=== PATIENT | female | born 1960 | race Caucasian/White ===

== ENCOUNTER 2017-07-20 07:40 | Inpatient (IN) | payer OTHER, BC ==
[2017-07-04 09:33] VITALS: BMI 44.0
--- NOTE | 2017-07-04 10:06 | PAT Medication Instructions ---
Service Date Jul 04, 2017. Current Home Medication List Acetaminophen (Tylenol), 1,000 MG PO QID PRN for Pain Bupropion (Wellbutrin Sr), 150 MG PO BID Citalopram (Citalopram Hydrobromide), 1 TAB PO QAM Clonazepam (Klonopin), 0.5 MG PO TID PRN for Anxiety Cranberry-Vitamin C-Vitamin E (Cranberry Plus Vitamin C), 2 CAP PO QAM Naproxen (Aleve), 220 MG PO BID PRN for Pain Phentermine Hcl (Adipex P), 37.5 MG PO UD Quetiapine Fumarate (Seroquel), 50 MG PO HS Topiramate (Topamax), 50 MG PO UD Tramadol (Ultram), 50 MG PO Q6H PRN for Pain Medication Instructions For Your Scheduled Surgery - Check with surgeon for instructions: Naproxen (Aleve), 220 MG PO BID PRN for Pain - Hold the following medications 2 weeks prior to surgery: Cranberry-Vitamin C-Vitamin E (Cranberry Plus Vitamin C), 2 CAP PO QAM - Take the following medications the morning of surgery with a sip of water OTHERWISE NOTHING TO EAT OR DRINK AFTER MIDNIGHT: Bupropion (Wellbutrin Sr), 150 MG PO BID Citalopram (Citalopram Hydrobromide), 1 TAB PO QAM Acetaminophen (Tylenol), 1,000 MG PO QID PRN for Pain (may take if needed up to 4 hours prior to surgery) Clonazepam (Klonopin), 0.5 MG PO TID PRN for Anxiety Tramadol (Ultram), 50 MG PO Q6H PRN for Pain (may take if needed up to 4 hours prior to surgery) - Take the following medications as scheduled the night before surgery: Bupropion (Wellbutrin Sr), 150 MG PO BID Acetaminophen (Tylenol), 1,000 MG PO QID PRN for Pain Clonazepam (Klonopin), 0.5 MG PO TID PRN for Anxiety Tramadol (Ultram), 50 MG PO Q6H PRN for Pain Quetiapine Fumarate (Seroquel), 50 MG PO HS If you have any questions please call us at [phone] or [phone] or [phone]
[2017-07-04 10:41] LABS: BASO % 0.4 %; BASO ABS # 0.02 K/uL (0-0.2); COMPLETE YES; EOS % 2.8 %; HEMATOCRIT 37.1 % (37-47); IG% 0.2 %; LYMPH % 28.2 %; LYMPH ABS # 1.33 K/uL (1.2-3.4); MEAN CELL VOLUME 90.7 fL (80-100); MEAN CORPUSCULAR HEMOGLOBIN 29.6 pg (25-34); MEAN CORPUSCULAR HGB CONC 32.6 g/dl (32-36); MEAN PLATELET VOLUME 10.7 fL (7.4-10.4); MONO % 6.4 %; PLATELET COUNT 203 K/uL (130-400); RED BLOOD COUNT 4.09 M/uL (4.2-5.4); WHITE BLOOD COUNT 4.71 K/uL (4.8-10.8)
[2017-07-04 10:44] LABS: URINE APPEARANCE CLEAR (CLEAR); URINE BILIRUBIN NEG (NEG); URINE COLOR YELLOW; URINE EPITHELIAL CELL AUTO >30 /lpf (0-5); URINE NITRITE NEG (NEG); URINE SPECIFIC GRAVITY 1.022 (1.000-1.030); UROBILINOGEN NEG (NEG)
[2017-07-04 10:45] LABS: MANUAL MICROSCOPIC REQUIRED? NO; REVIEW REQ? NO
[2017-07-04 10:50] LABS: PARTIAL THROMBOPLASTIN RATIO 1.1; PROTHROMBIN TIME (PATIENT) 10.2 SECONDS (9.0-12.0)
--- NOTE | 2017-07-04 10:51 | DIAGNOSTIC IMAGING REPORT ---
TWO VIEW CHEST CLINICAL HISTORY: Preoperative examination. FINDINGS: PA and lateral chest radiographs are obtained. No prior studies are available for comparison at the time of dictation. The cardiomediastinal silhouette is unremarkable. There is mild elevation of the right hemidiaphragm. The lungs and pleural spaces are clear. There is no pneumothorax. The bony thorax appears intact. IMPRESSION: No active disease in the chest. Electronically signed by: Arnulfo Leo M.D. 07/04/2017 10:50 AM Dictated Date/Time: 07/04/2017 10:48 AM
[2017-07-04 11:52] LABS: BUN/CREATININE RATIO 17.4 (10-20); CALCIUM 8.4 mg/dl (8.5-10.1); CREATININE 0.85 mg/dl (0.60-1.20); POTASSIUM 4.1 mmol/L (3.5-5.1)
--- NOTE | 2017-07-19 13:37 | HISTORY & PHYSICAL EXAMINATION ---
DATE OF ADMISSION: 07/20/2017 HISTORY OF PRESENT ILLNESS: The patient presents as a 57-year-old white female, 5 foot 10 inches, 299 pounds being seen and evaluated with complaints of ongoing pain attributed to her right knee. She has been nonresponsive to conservative therapy. She has bone to bone changes, varus alignment, subchondral osteophytes, and subchondral sclerosis with subchondral cystic changes and medial osteophytes noted. She has been nonresponsive to conservative therapy including injections, anti-inflammatories, activity modification, and relative rest and presents for total knee arthroplasty. PAST MEDICAL HISTORY: Significant for sleep apnea, utilizing a home CPAP as well as severe anxiety. Remainder of past medical history is otherwise unremarkable. See history for pertinent positives. FAMILY HISTORY: Otherwise noncontributory. SOCIAL HISTORY: The patient denies history of smoking, alcohol use or recreational drug use. MEDICAL ALLERGIES: None. MEDICATIONS: Include clonazepam 0.5 mg at nighttime, if needed; Naprosyn 220 mg 2 tablets p.o. daily, Topiramate 50 mg in the evening, tramadol 50 mg p.o. q. 6 hours as needed. PHYSICAL EXAMINATION: HEENT: Otherwise unremarkable, atraumatic, normocephalic. HEART: regular at 72 beats per minute. No murmurs are noted. LUNGS: Clear without rales, rhonchi, or wheezes noted. ABDOMEN: Soft, nontender, nondistended. Bowel sounds are present in all 4 quadrants. RECTAL: No rectal examination was performed. MUSCULOSKELETAL: Consistent with that of severe end-stage tricompartmental degenerative joint disease with bone to bone changes. PLAN: Total knee arthroplasty, postoperative pain management, DVT prophylaxis and medical management as necessary. PATY
[~2017-07-20] VITALS: Ht 177.8 cm; Wt 139.2 kg
[2017-07-20] VITALS (8 sets, daily range): BP systolic 115–149; BP diastolic 72–84; PULSE 71–82; TEMP 36.8–37.1; O2SAT 94–99; Ht 177.8 cm; Wt 139.2 kg
--- NOTE | 2017-07-20 07:09 | History & Physical Bridge Note ---
H&P Re-Evaluation Bridge Note: I have examined the patient, reviewed the History & Physical and in the interval since the performance of the History & Physical I have noted the following changes of clinical significance: No changes noted
[~2017-07-20 07:40] MED LIST: ACET-1256 PO; ACETAMINOPHEN 500 MG TAB PO SCH; BUPR-79 PO; CEFAZOLIN 3000 MG/65 ML D5W 65 ML IV SCH; CITA40TA4 PO; CLON0.5T3 PO; CRAN1CAP14 PO; CeleBREX 200 MG CAP PO SCH; DEXAMETHASONE 4 MG TAB PO SCH; FAMOTIDINE 20 MG TAB PO SCH; GABAPENTIN 300 MG CAP PO SCH; LACTATED RINGER'S 1000ML 1,000 ML IV SCH; LACTATED RINGER'S 1000ML 500 ML IV ONE; LACTATED RINGER'S 1000ML IV SCH; METOCLOPRAMIDE HCL 10 MG TAB PO SCH; NAPR1TAB9 PO; QUET1TAB32 PO; ROPIVACAINE 5MG/ML 30 ML 150 MG, BUPIVACAINE/EPINEPHR 0.5% MPF 30 ML, KETOROLAC TROMETH... INFIL SCH; TRAM-10 PO
[2017-07-20] MEDS ORDERED: BUPIVACAINE 0.5 % 5 MG/1 ML PF 10ML VIAL ONE (08:31)
[2017-07-20] MEDS ORDERED: BUPIVACAINE 0.25% 30 ML VIAL ONE (08:31)
[2017-07-20] MEDS ORDERED: MIDAZOLAM HCL 1 MG/ML 2ML VIAL ONE ×3 (09:11→10:48)
[2017-07-20] MEDS ORDERED: PROPOFOL IV EMULSION 10 MG/ML 20 ML VIAL IV ONE ×2 (09:12→11:46)
[2017-07-20] MEDS ORDERED: LIDOCAINE HCL 2% 2 ML VIAL (20MG/ML) ONE (09:12)
[2017-07-20] MEDS: TRANEXAMIC ACID INJ 1,000 MG in SODIUM CHLORIDE 0.9% 100ML 100 ML IV SCH ×2 (09:54→14:55)
[2017-07-20] MEDS ORDERED: POVIDONE-IODINE OP SOLN 30 ML BTL ONE (10:13)
[2017-07-20] MEDS ORDERED: ORTHO JOINT ANESTHETIC ONE (10:13)
[2017-07-20] MEDS ORDERED: BACITRACIN 50000 UNIT VIAL ONE (10:13)
[2017-07-20] MEDS ORDERED: ONDANSETRON INJ 2 MG/ML 2 ML VIAL IV PRN ×2 (11:30→12:30)
[2017-07-20] MEDS ORDERED: LABETALOL HCL IV 5 MG/ML 20ML IV PRN (11:30)
[2017-07-20] MEDS ORDERED: MEPERIDINE HCL 25 MG/ML CARP IV PRN (11:30)
[2017-07-20] MEDS ORDERED: FENTANYL CITRATE INJ 50 MCG/1 ML 2 ML VIAL IV PRN (11:30)
[2017-07-20] MEDS ORDERED: ATROPINE SULFATE 0.1 MG/ML 5ML SYR IV PRN (11:30)
[2017-07-20] MEDS ORDERED: EpHEDrine SULFATE INJ 50 MG/ML AMP IV PRN (11:30)
[2017-07-20] MEDS ORDERED: HYDROmorphone INJ 1 MG/ML SYR IV PRN (11:30)
--- NOTE | 2017-07-20 11:51 | [facility] Operative Report ---
Operative Report Operative Date Jul 20, 2017. Pre-Operative Diagnosis degenerative joint disease Post-Operative Diagnosis degenerative joint disease Procedure(s) Performed total right knee arthroplasty utilizing [employer] & Nephew journey 2 nonblock total knee arthroplasty size 5 femur 4 tibia 11 Kirstin [address] Wood Coates Jira Administrator Surgeon(s) Roseanne Jarvis PA-C Estimated Blood Loss 5ML Findings Severe end-stage tricompartmental degenerative joint disease with varus alignment subchondral cystic changes sclerosus Specimens A: right knee bone and tissue Complication(s) None Disposition Recovery Room / PACU Indications Patient presents with a severe varus alignment DJD [id number] changes medial compartment patellofemoral compartment large osteophyte subchondral sclerosis she's failed times a conservative management including physical therapy anti- inflammatories relative rest activity modification presents for total knee arthroplasty Description of Procedure After proper prepping and draping of the Right lower extremity anterior midline incision was made over the region of the extensor extensor mechanism after meticulous hemostasis was obtained and maintained in subcutaneous tissues a medial parapatellar incision was made The patella was subluxed lateralward the medial lateral gutter were cleaned from any hypertrophic synovitis and scar tissue of the distal femoral block was placed and the distal femoral osteotomy cut was made subsequently the chamfers anterior and posterior osteotomy cuts were made utilizing the 4-in-1 block the tibia was subsequently subluxed anteriorward medial and ateral meniscal remnants were excised in their entirety remnants of the anterior and posterior cruciate ligaments were excised in their entirety excellent exposure of the proximal tibia was obtained the tibial osteotomy guide was placed on the proximal tibial osteotomy cut was made once again the knee was irrigated with copious amounts of sterile saline solution the patella was subsequently everted lateralward thickened scar tissue around the patella was removed the patella was subsequently cut utilizing a freehand technique and was drilled prepared for final preparation and placement of patella socially flexion-extension gaps were checked and the equal and symmetric trials were placed to the appropriate femoral and tibial trials with poly-spacer being placed for equal flexion and extension gaps and full range of motion including extension to 0 and flexion to 140 the trial components after having been taken to recovery range of motion was subsequently removed meticulous hemostasis was obtained and maintained subsequently a knee block injection of joint cocktail including ropivacaine 0.5% 150 mg. Bupivacaine 0.5 % epinephrine 1-200,030 mL's toradol 30 mg dexamethasone 4 mg ketamine 10 mg clonidine 100 micrograms normal saline solution 30 mg was infiltrated into the soft tissues of the posterior knee medial lateral gutters and periosteal synovium special attention was paid to protect neurovascular structures at all times subsequently trial components having been removed the knee was irrigated with sterile saline solution. debris was removed the proximal tibia was subsequently prepared and was made ready for the placement of the tibial component tibial component was also cemented and tamped into position the femoral component was subsequently placed and cemented in the position the patellar component was subsequently cemented in position because hemostasis once again obtained and maintained wound having been thoroughly irrigated with debridement and debridement lavage was performed as well as a medial parapatellar incision closed with #1 Vicryl in interrupted fashion subcutaneous was closed with #2 Vicryl skin was closed with skin clips. PA-C was necessary for prepping and drapping as well as wound closure of deep fascia Sub cutaneous tissue and skin and was necessary for the case. A sterile compressive dressing was placed patient was taken to recovery in stable condition of report dictated by Jaxon I attest to the content of the Intraoperative Record and any orders documented therein. Any exceptions are noted below. I attest to the content of the Intraoperative Record and any orders documented therein. Any exceptions are noted below.
[2017-07-20] MEDS ORDERED: ZOLPIDEM TARTRATE 5 MG TAB PO PRN (12:30)
[2017-07-20] MEDS ORDERED: ALUMINUM/MAGNESIUM/SIMETH (MAALOX MAX) 30 ML UDC PO PRN (12:30)
[2017-07-20] MEDS ORDERED: CLONAZEPAM 0.5 MG TAB PO PRN (12:30)
[2017-07-20] MEDS ORDERED: BISACODYL 10 MG SUPP PR PRN (12:30)
[2017-07-20] MEDS ORDERED: SOD PHOSPHATE/SOD BIPHOSPHATE ENEMA 132 ML BTL PR PRN (12:30)
[2017-07-20] MEDS ORDERED: MAGNESIUM HYDROXIDE SUSP 30 ML UDC PO PRN (12:30)
[2017-07-20] MEDS ORDERED: MoRPHine SULFATE 2 MG/ML CARP IV PRN (12:30)
[2017-07-20] MEDS ORDERED: DiphenhydrAMINE HCL 50 MG/ML VIAL IV PRN (12:30)
--- NOTE | 2017-07-20 12:44 | Anesthesiology Progress Note ---
Anesthesia Post Op Note Date & Time Jul 20, 2017 at 12:44 Vital Signs Pain Intensity: 2 Vital Signs Past 12 Hours Date Time Temp Pulse Resp B/P (MAP) Pulse Ox O2 Delivery O2 Flow Rate FiO2 07/20/17 12:36 120/69 07/20/17 12:35 70 16 07/20/17 12:35 69 16 93 07/20/17 12:31 123/72 07/20/17 12:30 72 18 94 07/20/17 12:30 72 18 07/20/17 12:26 128/75 07/20/17 12:25 72 16 07/20/17 12:25 71 16 93 07/20/17 12:20 36.4 76 20 123/72 95 Room Air 07/20/17 12:20 76 20 123/72 95 07/20/17 12:20 77 20 07/20/17 08:00 36.8 82 20 141/78 99 Room Air Notes Mental Status: alert / awake / arousable, participated in evaluation Pt Amnestic to Procedure: Yes Nausea / Vomiting: adequately controlled Pain: adequately controlled Airway Patency, RR, SpO2: stable & adequate BP & HR: stable & adequate Hydration State: stable & adequate Anesthetic Complications: no major complications apparent
--- NOTE | 2017-07-20 12:54 | DIAGNOSTIC IMAGING REPORT ---
R KNEE 1 OR 2 VIEWS ROUTINE HISTORY: 57 years-old Female AP/LATERAL IN PACU RIGHT KNEE status post right knee arthroplasty COMPARISON: None available TECHNIQUE: Frontal and lateral views of the right knee FINDINGS: Patient is status post right knee total joint arthroplasty and patellar resurfacing without evidence of complication. Alignment is satisfactory. Anterior skin ev with expected postsurgical swelling and deep tissue air is noted about the knee. Surgical drain in place. There is mild flexion of the knee which slightly limits the study on the lateral view. IMPRESSION: Status post right knee total joint arthroplasty and patellar resurfacing without complication. The above report was generated using voice recognition software. It may contain grammatical, syntax or spelling errors. Electronically signed by: Navarro Palma M.D. 07/20/2017 12:52 PM Dictated Date/Time: 07/20/2017 12:51 PM
[2017-07-20] MEDS ORDERED: INFLUENZA VIRUS QUAD VACCINE 0.5 ML SYR IM. ONE (14:15)
[2017-07-20] MEDS ORDERED: INFLUENZA ADMINISTRATION CHARGE ONE (14:15)
[2017-07-20] MEDS: D5W AND 1/2NSS + 20MEQ KCL 1,000 ML IV SCH ×2 (15:04→23:55)
[2017-07-20] MEDS: CEFAZOLIN IV 3,000 MG in SYRINGE 0 ML IV SCH (17:36)
[2017-07-20] MEDS: OXYCODONE HCL IR 5 MG TAB (IMMEDIATE RELEASE) PO PRN (18:33)
[2017-07-20] MEDS: KETOROLAC TROMETHAMINE 30 MG/ML VIAL IV. SCH (19:35)
[2017-07-20] MEDS: BuPROPion SR 150 MG TABCR PO SCH (21:17)
[2017-07-20] MEDS: SENNA 8.6 MG TAB PO SCH (21:17)
[2017-07-20] MEDS: ACETAMINOPHEN 500 MG TAB PO SCH (21:17)
[2017-07-20] MEDS: ASPIRIN 81 MG ECTAB PO SCH (21:17)
[2017-07-20] MEDS: QUETIAPINE FUMARATE 25 MG TAB PO SCH (21:17)
[2017-07-21] MEDS: CEFAZOLIN IV 3,000 MG in SYRINGE 0 ML IV SCH ×2 (02:03→10:15)
[2017-07-21] MEDS: KETOROLAC TROMETHAMINE 30 MG/ML VIAL IV. SCH ×3 (02:04→13:57)
[2017-07-21 03:55] VITALS: BP 139/84; PULSE 69; TEMP 36.9; O2SAT 96
[2017-07-21] MEDS: ACETAMINOPHEN 500 MG TAB PO SCH ×3 (06:00→22:06)
[2017-07-21] MEDS: OXYCODONE HCL IR 5 MG TAB (IMMEDIATE RELEASE) PO PRN ×2 (06:14→12:55)
[2017-07-21 06:15] LABS: HEMATOCRIT 31.8 % (37-47); MEAN CELL VOLUME 91.6 fL (80-100); MEAN CORPUSCULAR HEMOGLOBIN 30.8 pg (25-34); MEAN CORPUSCULAR HGB CONC 33.6 g/dl (32-36); MEAN PLATELET VOLUME 10.4 fL (7.4-10.4); PLATELET COUNT 185 K/uL (130-400); RED BLOOD COUNT 3.47 M/uL (4.2-5.4); WHITE BLOOD COUNT 9.35 K/uL (4.8-10.8)
[2017-07-21 06:53] LABS: BUN/CREATININE RATIO 16.6 (10-20); CALCIUM 8.2 mg/dl (8.5-10.1); CREATININE 0.83 mg/dl (0.60-1.20); POTASSIUM 4.3 mmol/L (3.5-5.1)
[2017-07-21 07:06] VITALS: BP 128/78; PULSE 64; TEMP 36.8; O2SAT 99
--- NOTE | 2017-07-21 07:17 | Clinical Documentation Query ---
CLINICAL DOCUMENTATION QUERY Dr. GAMA, In your clinical opinion does this patient have: ( ) morbid obesity with BMI 44 ( ) Not Agree ( ) Other explanation of clinical findings (Please Explain) ( ) Unable to determine (Please Define) ( ) Need to Discuss BMI: A significantly high (>40) or significantly low (<19) BMI will impact the severity of illness and risk of mortality of your patient. However, the physician must document a correlating diagnosis in the medical record. Please clarify and document your clinical opinion in the progress notes and discharge summary. Terms such as "probable", "suspected", "likely", "questionable", "possible", or "still to be ruled out" are acceptable. IF IN AGREEMENT, YOU MUST DOCUMENT ABOVE DIAGNOSTIC STATEMENT IN DAILY PROGRESS NOTES AND DISCHARGE SUMMARY. This document is not part of the patient's record. Thank You, Nidhi Dickinson, SONIA [phone]
[2017-07-21] MEDS ORDERED: DEXAMETHASONE 4 MG TAB PO ONE (07:30)
--- NOTE | 2017-07-21 07:58 | Orthopedic Progress Note ---
Orthopedic Progress Note Date of Service Jul 21, 2017. Subjective Post OP Day: 1 Reports: feeling well, Denies: chest pain, SOB, nausea / vomiting, light headedness, calf pain Objective calves soft nontender, N/V intact, capillary refill less than 2 sec., dressing C /D/I, A&O x3, toes mobile, hemovac drainage (175/150cc per shift) Date Time Temp Pulse Resp B/P (MAP) Pulse Ox O2 Delivery O2 Flow Rate FiO2 07/21/17 07:06 36.8 64 16 128/78 (95) 99 Room Air 07/21/17 03:55 36.9 69 16 139/84 (102) 96 Room Air 07/20/17 22:54 37.0 76 16 115/72 (86) 95 Room Air 07/20/17 19:46 36.8 76 16 149/73 (98) 94 Room Air 07/20/17 19:33 Room Air CPAP 07/20/17 16:47 37.1 77 16 125/78 (94) 96 Nasal Cannula 2.0 07/20/17 15:45 36.8 80 16 127/81 (96) 97 Nasal Cannula 2.0 07/20/17 14:45 82 16 134/78 (96) 97 07/20/17 14:15 77 16 136/84 (101) 97 07/20/17 13:45 97 Nasal Cannula 2.0 07/20/17 13:45 96 Nasal Cannula 2.0 07/20/17 13:45 37.1 71 16 125/75 (92) 97 Nasal Cannula 2.0 07/20/17 13:13 73 20 07/20/17 13:13 72 20 93 07/20/17 13:11 121/71 07/20/17 13:08 71 16 07/20/17 13:08 70 16 91 07/20/17 13:06 124/77 07/20/17 13:03 71 18 92 07/20/17 13:03 71 18 07/20/17 13:01 125/67 07/20/17 12:58 73 16 07/20/17 12:58 72 16 92 07/20/17 12:56 129/74 07/20/17 12:53 71 15 92 07/20/17 12:53 72 15 07/20/17 12:51 128/78 07/20/17 12:49 36.4 72 22 128/78 (80) 93 Room Air 07/20/17 12:48 74 20 94 07/20/17 12:48 74 20 07/20/17 12:47 75 19 93 07/20/17 12:47 74 19 07/20/17 12:46 123/85 07/20/17 12:42 71 16 07/20/17 12:42 71 16 93 07/20/17 12:41 127/69 07/20/17 12:37 78 15 07/20/17 12:37 77 15 95 07/20/17 12:36 120/69 07/20/17 12:35 70 16 07/20/17 12:35 69 16 93 07/20/17 12:31 123/72 07/20/17 12:30 72 18 94 07/20/17 12:30 72 18 07/20/17 12:26 128/75 07/20/17 12:25 72 16 07/20/17 12:25 71 16 93 07/20/17 12:20 36.4 76 20 123/72 95 Room Air 07/20/17 12:20 76 20 123/72 95 07/20/17 12:20 77 20 07/20/17 08:00 36.8 82 20 141/78 99 Room Air Laboratory Results 24 Hours: Test 07/21/17 06:04 Hematocrit 31.8 % Hemoglobin 10.7 g/dL Assessment & Plan Assessment: POD#1 sp right TKA Morbid obesity Plan: PT/OT DVT proph- ASA a81mg bid Pain management- Judy, Tylenol, Celebrex DC planning- home PT with KAMILA Avalos Tuesday
[2017-07-21] MEDS: MULTIVITAMIN TAB PO SCH (09:06)
[2017-07-21] MEDS: CITALOPRAM 40 MG TAB PO SCH (09:06)
[2017-07-21] MEDS: PANTOprazole SOD 40 MG TAB PO SCH (09:07)
[2017-07-21] MEDS: ASPIRIN 81 MG ECTAB PO SCH ×2 (09:07→20:53)
[2017-07-21] MEDS: BuPROPion SR 150 MG TABCR PO SCH ×2 (09:07→20:53)
[2017-07-21] MEDS: D5W AND 1/2NSS + 20MEQ KCL 1,000 ML IV SCH (10:15)
[2017-07-21 11:12] VITALS: BP 131/77; PULSE 73; TEMP 37.1; O2SAT 99
--- NOTE | 2017-07-21 12:45 | Anesthesiology Progress Note ---
Anesthesia Post Op Note Date & Time Jul 21, 2017 at 12:45 Vital Signs Pain Intensity: 4.0 Vital Signs Past 12 Hours Date Time Temp Pulse Resp B/P (MAP) Pulse Ox O2 Delivery O2 Flow Rate FiO2 07/21/17 11:12 37.1 73 16 131/77 (95) 99 Room Air 07/21/17 08:22 Room Air 07/21/17 07:06 36.8 64 16 128/78 (95) 99 Room Air 07/21/17 03:55 36.9 69 16 139/84 (102) 96 Room Air Notes Mental Status: alert / awake / arousable, participated in evaluation Pt Amnestic to Procedure: Yes Nausea / Vomiting: adequately controlled Pain: adequately controlled Airway Patency, RR, SpO2: stable & adequate BP & HR: stable & adequate Hydration State: stable & adequate Neuraxial Anesthesia: was administered, sensory block resolved Anesthetic Complications: no major complications apparent
[2017-07-21 15:40] VITALS: BP 139/84; PULSE 70; TEMP 36.5; O2SAT 99
[2017-07-21] MEDS: SENNA 8.6 MG TAB PO SCH (20:53)
[2017-07-21] MEDS: CeleBREX 200 MG CAP PO SCH (20:53)
[2017-07-21] MEDS: QUETIAPINE FUMARATE 25 MG TAB PO SCH (23:00)
[2017-07-21 23:01] VITALS: BP 140/93; PULSE 65; TEMP 36.5; O2SAT 100
[2017-07-22] MEDS: ACETAMINOPHEN 500 MG TAB PO SCH ×2 (05:58→13:57)
--- NOTE | 2017-07-22 07:24 | Orthopedic Progress Note ---
Orthopedic Progress Note Date of Service Jul 22, 2017. Subjective Post OP Day: 2 Reports: feeling well, pain controlled w PO medications, Denies: complaints, chest pain, SOB, nausea / vomiting, light headedness, calf pain Objective calves soft nontender, N/V intact, capillary refill less than 2 sec., dressing C /D/I, A&O x3, toes mobile Provena in tact. Date Time Temp Pulse Resp B/P (MAP) Pulse Ox O2 Delivery O2 Flow Rate FiO2 07/21/17 23:15 Room Air CPAP 07/21/17 23:01 36.5 65 16 140/93 (109) 100 Room Air 07/21/17 16:05 Room Air 07/21/17 15:40 36.5 70 18 139/84 (102) 99 Room Air 07/21/17 11:12 37.1 73 16 131/77 (95) 99 Room Air 07/21/17 08:22 Room Air Assessment & Plan Assessment: POD#2 sp right TKA Morbid obesity Plan: PT/OT DVT proph- ASA a81mg bid Pain management- Judy, Tylenol, Celebrex DC planning- home PT with KAMILA Avalos today
[2017-07-22] MEDS ORDERED: ASPEC81 PO (07:27)
[2017-07-22] MEDS ORDERED: CLB200 PO (07:27)
[2017-07-22] MEDS ORDERED: RXC5 PO (07:27)
[2017-07-22] MEDS ORDERED: ACET-24 PO (07:27)
--- NOTE | 2017-07-22 07:29 | Discharge Instructions ---
Discharge Instructions Date of Service Jul 22, 2017. Admission Reason for Admission: Unilateral Primary Osteoarthritis, Right Knee Discharge Discharge Diagnosis / Problem: Right TKA Discharge Goals Goal(s): Improve function Activity Recommendations Activity Limitations: as noted below . Instructions / Follow-Up Instructions / Follow-Up ACTIVITY RECOMMENDATIONS: SELF CARE INSTRUCTIONS AFTER TOTAL KNEE REPLACEMENT A. You may need to continue a physical therapy program after discharge from the hospital. There are several options available to you. Your doctor will assist you in selecting the best one for you. 1. An out-patient facility 2 to 3 times a week for therapy or home therapy. 2. Continue working on all exercises taught to you in the hospital. Your goals should be to increase bending of your knee to 90 degrees and beyond and to fully straighten your knee. B. You may progress at your own pace from walking with a walker or crutches to a cane; then to no assistive devices. C. Make walking a part of your daily routine. Be up as much as comfortable with rest periods throughout the day. Rest with leg elevation is very important. Use the ice wrap frequently for the first 3-4 weeks. D. There are no restrictions on activities. You may ride in a car, shop, participate in music composer and all social activities. E. Wear the long elastic stockings (ALEJANDRA hose) 20 hours a day for 2 weeks after surgery. They can be removed several times a day for laundering and for a bath. F. You may shower, no tub baths until cleared by your doctor. SPECIAL CARE INSTRUCTIONS: VERY IMPORTANT TO READ AND REVIEW A. There are a few signs you need to watch for after you are home. Call [facility] if you notice any of the followin. Increased severe knee pain. Some pain is expected especially when you exercise. 2. Increased swelling in your leg or knee; pain or swelling of the calf muscle in either lower leg. 3. Any fluid drainage from the incision. 4. Shortness of breath or chest pain. B. Please call [facility] at if you have any concerns or questions about your operation or recovery. The doctor or his nurse will return your call promptly. C. You must take antibiotics before dental work, bladder, bowel or other surgery. Your doctor will provide you with a permanent care to carry describing this precaution. IMPORTANT: * REMEMBER TO TAKE ASPIRIN, 81 MG, TWICE DAILY FOR 4 WEEKS UNLESS OTHERWISE DIRECTED. THIS IS YOUR BLOOD THINNER. * HIGH RISK PATIENTS MAY BE PRESCRIBED A STRONGER BLOOD THINNER. THIS WILL BE PROVIDED AT DISCHARGE. * CALL IF INCREASED PAIN, REDNESS, DRAINAGE OR FEVER GREATER THAT 101. * WEAR ALEJANDRA HOSE 20 HOURS PER DAY FOR 2 WEEKS. * YOU MAY HAVE A LARGE BAND-AID LIKE DRESSING (SILVERON). THIS WILL REMAIN ON YOUR INCISION FOR 7 DAYS, THEN CAN BE REMOVED. IF INCISION IS LEAKING THROUGH DRESSING, CALL THE OFFICE . FOLLOW UP VISIT: If appointment is not already scheduled: Please call [facility] to make a follow-up appointment for 2 weeks after your surgery at . D/C WOUND VAC 1 WK POST OP AND DISCARD ALL PARTS, REPLACE WITH STERILE DRESSING DAILY UNTIL FOLLOW UP IN OFFICE. Current Hospital Diet Patient's current hospital diet: Regular Diet Discharge Diet Recommended Diet: Regular Diet Procedures Procedures Performed: total right knee arthroplasty utilizing [employer] & Nephew journey 2 nonblock total knee arthroplasty size 5 femur 4 tibia 11 Kirstin 32 oval patella Pending Studies Studies pending at discharge: no Laboratory Results Hemoglobin A1c Test 07/04/17 10:15 Range/Units Estimated Average Glucose 111 mg/dl Hemoglobin A1c 5.5 4.5-5.6 % Medical Emergencies . Who to Call and When: Medical Emergencies: If at any time you feel your situation is an emergency, please call 911 immediately. . Non-Emergent Contact Non-Emergency issues call your: Primary Care Provider . "Provider Documentation" section prepared by Rupert Sinha. . VTE Core Measure Inpt VTE Proph given/why not?: Other Anticoagulation (ASA), T.E.DRuth Ann Mcclelland, SCD's [place] Drug Monitoring Program Search Results: patient reviewed within database, no issues identified
[2017-07-22 07:45] VITALS: BP 129/81; PULSE 69; TEMP 36.5; O2SAT 100
[2017-07-22 08:19] VITALS: BP 129/81; PULSE 69; TEMP 36.5; O2SAT 100
[2017-07-22] MEDS: BuPROPion SR 150 MG TABCR PO SCH (08:59)
[2017-07-22] MEDS: CeleBREX 200 MG CAP PO SCH (08:59)
[2017-07-22] MEDS: MULTIVITAMIN TAB PO SCH (08:59)
[2017-07-22] MEDS: CITALOPRAM 40 MG TAB PO SCH (08:59)
[2017-07-22] MEDS: PANTOprazole SOD 40 MG TAB PO SCH (08:59)
[2017-07-22] MEDS: ASPIRIN 81 MG ECTAB PO SCH (08:59)
[2017-07-22] MEDS: OXYCODONE HCL IR 5 MG TAB (IMMEDIATE RELEASE) PO PRN (11:42)
--- NOTE | 2017-07-25 13:12 | DISCHARGE SUMMARY ---
DISCHARGE DIAGNOSIS: Degenerative joint disease, right knee. SECONDARY DIAGNOSIS: None. CONSULTS: None. COMPLICATIONS: None. PROCEDURE: The patient underwent a right total knee arthroplasty by Dr. Coates on 07/20/2017. BRIEF HISTORY: Please see previously dictated history and physical. HOSPITAL SUMMARY: The patient was admitted on the above day for the above procedure. Procedure went without complication. Postop day 1, the patient was feeling well without complaints. She denied chest pain or shortness of breath. Vital signs were stable. She was afebrile. Dressing was clean, dry and intact. She was neurovascularly intact. Calves were soft and nontender. Hemovac drained 175 mL and 150 mL. Hemoglobin was 10.7. The patient began physical therapy per protocol. Postop day 2, the patient was improving. She denied chest pain or shortness of breath. Vital signs were stable. She was afebrile. Dressing was clean, dry and intact. She was neurovascularly intact. Calves were soft and nontender. The patient progressed with physical therapy. She was discharged to home later that day in stable condition. For further review, please see the chart. Lab, x-ray data and discharge instructions as per chart.
== END 2017-07-22 15:30 | disposition home health service (06) | DRG 470 ==
LOC: C.ACU 07:40 → C.3E 08:45 → ENRESERV 13:24
PROVIDERS: ADMIT Orthopaedic Surgery; ATTEND Orthopaedic Surgery
PROC: 0SRC0J9 Replacement of Right Knee Joint with Synthetic Substitute, Cemented, Open Approach (ICD-10-PCS; principal; 2017-07-20 10:15)
DX: M17.11 Unilateral primary osteoarthritis, right knee (principal); Z68.41 Body mass index [BMI] 40.0-44.9, adult; G47.30 Sleep apnea, unspecified; E66.01 Morbid (severe) obesity due to excess calories; Z79.899 Other long term (current) drug therapy

== ENCOUNTER 2017-11-02 09:55 | Inpatient (IN) | payer OTHER, BC ==
[2017-10-18 12:29] VITALS: Ht 177.8 cm; Wt 135.5 kg
--- NOTE | 2017-10-18 12:58 | PAT Medication Instructions ---
Service Date Oct 18, 2017. Current Home Medication List Acetaminophen (Tylenol), 1,000 MG PO PRN Bupropion (Wellbutrin Sr), 150 MG PO BID Citalopram (Citalopram Hydrobromide), 1 TAB PO QAM Clonazepam (Klonopin), 0.5 MG PO TID PRN for Anxiety Diphenhydramine-Acetaminophen (Tylenol Pm), 2 TAB PO HS Quetiapine Fumarate (Seroquel), 50 MG PO HS Tramadol (Ultram), 50-100 MG PO Q6H PRN for locomotive operator helper Instructions For Your Scheduled Surgery - Take the following medications the morning of surgery with a sip of water: Clonazepam (Klonopin), 0.5 MG PO TID PRN for Anxiety (if needed) Bupropion (Wellbutrin Sr), 150 MG PO BID Citalopram (Citalopram Hydrobromide), 1 TAB PO QAM Acetaminophen (Tylenol), 1,000 MG PO PRN (if needed, can be taken up to four hours before surgery) Tramadol (Ultram), 50-100 MG PO Q6H PRN for RN (if needed, can be taken up to four hours before surgery) - Take the following medications as scheduled the night before surgery: Diphenhydramine-Acetaminophen (Tylenol Pm), 2 TAB PO HS Quetiapine Fumarate (Seroquel), 50 MG PO HS Clonazepam (Klonopin), 0.5 MG PO TID PRN for Anxiety (if needed) Bupropion (Wellbutrin Sr), 150 MG PO BID Acetaminophen (Tylenol), 1,000 MG PO PRN (if needed) Tramadol (Ultram), 50-100 MG PO Q6H PRN for RN (if needed) If you have any questions please call us at [phone] or [phone] or [phone]
[2017-10-18 14:51] LABS: BASO % 0.3 %; BASO ABS # 0.02 K/uL (0-0.2); EOS % 1.9 %; EOS ABS # 0.11 K/uL (0-0.5); HEMATOCRIT 37.6 % (37-47); HEMOGLOBIN 12.1 g/dL (12.0-16.0); IG# 0.01 K/uL (0.00-0.02); LYMPH % 25.4 %; LYMPH ABS # 1.46 K/uL (1.2-3.4); MEAN CORPUSCULAR HEMOGLOBIN 29.3 pg (25-34); MEAN CORPUSCULAR HGB CONC 32.2 g/dl (32-36); MEAN PLATELET VOLUME 11.2 fL (7.4-10.4); MONO % 6.4 %; MONO ABS # 0.37 K/uL (0.11-0.59); NEUT % 65.8 %; NEUT ABS # 3.77 K/uL (1.4-6.5); PLATELET COUNT 248 K/uL (130-400); RED CELL DISTRIBUTION WIDTH CV 14.9 % (11.5-14.5); RED CELL DISTRIBUTION WIDTH SD 50.1 fL (36.4-46.3); WHITE BLOOD COUNT 5.74 K/uL (4.8-10.8)
[2017-10-18 15:02] LABS: PTT PATIENT 27.9 SECONDS (21.0-31.0)
[2017-10-18 15:35] LABS: ALBUMIN 3.6 gm/dl (3.4-5.0); CALCIUM 9.3 mg/dl (8.5-10.1); CREATININE 0.89 mg/dl (0.60-1.20); POTASSIUM 4.5 mmol/L (3.5-5.1)
[2017-10-19 05:45] LABS: HEMOGLOBIN A1C 5.3 % (4.5-5.6)
--- NOTE | 2017-10-19 11:35 | HISTORY & PHYSICAL EXAMINATION ---
DATE OF ADMISSION: 11/02/2017 CHIEF COMPLAINT: Left knee pain. HISTORY OF PRESENT ILLNESS: Leonarda is a 57-year-old female with a multiple year history of left knee pain. The patient has pain with her daily activities. She has limited standing and walking tolerance. Pain is worse with weightbearing. She has failed injections, nonsteroidals, and physical therapy. She is now scheduled for a left total knee arthroplasty. PAST MEDICAL HISTORY: Sleep apnea, history of phlebitis. PAST SURGICAL HISTORY: Right TKA. FAMILY HISTORY: Negative for DVT. SOCIAL HISTORY: The patient denies alcohol or tobacco use. She lives in a 2-story home and is . ALLERGIES: None. REVIEW OF SYSTEMS: See HPI. Ten other systems reviewed, all negative. MEDICATIONS: Clonazepam 0.5 mg p.r.n., bupropion 150 mg b.i.d., citalopram 40 mg, quetiapine 50 mg, Tylenol p.r.n. PHYSICAL EXAMINATION: VITAL SIGNS: Height 5 foot 10 inches. Weight 299 pounds. GENERAL: This is a well-developed, well-nourished female who is alert and oriented x3. Mood and affect are appropriate. HEENT: Normocephalic, atraumatic. Mucous membranes are moist and intact. NECK: Supple without lymphadenopathy. HEART: Regular rate and rhythm without murmurs, rubs or gallops. LUNGS: Clear to auscultation without wheezes or rhonchi. ABDOMEN: Soft and nontender. Bowel sounds are equal and active. EXTREMITIES: No ecchymosis, redness or warmth. Thigh and calf are soft and nontender. She has neutral alignment. Range of motion is from 0-110 degrees with no laxity. She is neurovascularly intact with +5/5 strength. She has +1 distal edema. X-RAY EXAMINATION: AP and lateral views show joint space narrowing and osteophyte formation. IMPRESSION: Degenerative joint disease, left knee. PLAN: The patient will be admitted for a left total knee arthroplasty. We will plan on [facility] for home physical therapy. The patient is requesting Tylenol and tramadol only for pain medication upon discharge.
[2017-11-02] VITALS (7 sets, daily range): BP systolic 113–145; BP diastolic 69–85; PULSE 70–94; TEMP 36.4–37.3; O2SAT 92–99
[~2017-11-02] VITALS: Ht 177.8 cm; Wt 135.5 kg
[~2017-11-02 09:55] MED LIST changes: +BUPIVACAINE 0.25% 30 ML VIAL ONE; +BUPIVACAINE 0.5 % 5 MG/1 ML PF 10ML VIAL ONE; -CEFAZOLIN 3000 MG/65 ML D5W 65 ML IV SCH; +CEFAZOLIN 3000MG IV PUSH 15 ML IV SCH; -CRAN1CAP14 PO; +DIPH-437 PO; -LACTATED RINGER'S 1000ML 500 ML IV ONE; +LACTATED RINGER'S 1000ML 500 ML IV SCH; -NAPR1TAB9 PO; +ROPIVACAINE 5MG/ML 30 ML 150 MG, BUPIVACAINE 0.5% MPF INJ 30 ML, EpINEphrine HCL INJ 0.... INFIL SCH; -ROPIVACAINE 5MG/ML 30 ML 150 MG, BUPIVACAINE/EPINEPHR 0.5% MPF 30 ML, KETOROLAC TROMETH... INFIL SCH
[2017-11-02] MEDS ORDERED: POVIDONE-IODINE OP SOLN 30 ML BTL ONE (12:10)
[2017-11-02] MEDS ORDERED: ORTHO JOINT ANESTHETIC ONE (12:10)
[2017-11-02] MEDS ORDERED: BACITRACIN 50000 UNIT VIAL ONE (12:10)
[2017-11-02] MEDS ORDERED: MIDAZOLAM HCL 1 MG/ML 2ML VIAL ONE (12:21)
[2017-11-02] MEDS ORDERED: PHENYLEPHRINE 100MCG/ML 5ML SYR IV PRN (12:30)
[2017-11-02] MEDS ORDERED: ATROPINE SULFATE 0.1 MG/ML 5ML SYR IV PRN (12:30)
[2017-11-02] MEDS ORDERED: EpHEDrine SULFATE INJ 50 MG/ML AMP IV PRN (12:30)
[2017-11-02] MEDS ORDERED: HYDROmorphone INJ 2 MG/ML SYR/VIAL IV PRN (12:30)
[2017-11-02] MEDS ORDERED: ONDANSETRON INJ 2 MG/ML 2 ML VIAL IV PRN ×2 (12:30→15:00)
[2017-11-02] MEDS ORDERED: KETOROLAC TROMETHAMINE 30 MG/ML VIAL IV. PRN ×2 (12:30→15:00)
[2017-11-02] MEDS: TRANEXAMIC ACID INJ 1,000 MG in SYRINGE 0 ML IV SCH ×2 (12:45→17:07)
[2017-11-02] MEDS ORDERED: PROPOFOL IV EMULSION 10 MG/ML 20 ML VIAL IV ONE (13:40)
[2017-11-02] MEDS ORDERED: CLONAZEPAM 0.5 MG TAB PO PRN (15:00)
[2017-11-02] MEDS ORDERED: SOD PHOSPHATE/SOD BIPHOSPHATE ENEMA 132 ML BTL PR PRN (15:00)
[2017-11-02] MEDS ORDERED: ALUMINUM/MAGNESIUM/SIMETH (MAALOX MAX) 30 ML UDC PO PRN (15:00)
[2017-11-02] MEDS ORDERED: BISACODYL 10 MG SUPP PR PRN (15:00)
[2017-11-02] MEDS ORDERED: MAGNESIUM HYDROXIDE SUSP 30 ML UDC PO PRN (15:00)
[2017-11-02] MEDS ORDERED: ZOLPIDEM TARTRATE 5 MG TAB PO PRN (15:00)
[2017-11-02] MEDS ORDERED: CEFAZOLIN IV 2,000 MG in DEXTROSE 5% 50ML 50 ML IV SCH (15:00)
[2017-11-02] MEDS ORDERED: MoRPHine SULFATE 2 MG/ML CARP IV PRN ×2 (15:00→15:30)
[2017-11-02] MEDS ORDERED: OXYCODONE HCL IR 5 MG TAB (IMMEDIATE RELEASE) PO PRN (15:15)
--- NOTE | 2017-11-02 15:21 | DIAGNOSTIC IMAGING REPORT ---
L KNEE 1 OR 2 VIEWS ROUTINE CLINICAL HISTORY: Degenerative arthritis. Postoperative study COMPARISON: None. DISCUSSION: There are postsurgical changes of a total left knee arthroplasty and patellar resurfacing. The femoral and tibial components appear well seated. Overlying skin ev and surgical drains are evident. There is air within soft tissues consistent with recent surgery. IMPRESSION: Postsurgical changes of a total left knee arthroplasty. Electronically signed by: Sae Madden M.D. 11/02/2017 3:20 PM Dictated Date/Time: 11/02/2017 3:19 PM
--- NOTE | 2017-11-02 15:22 | [facility] Post Operative Brief Note ---
Immediate Operative Summary Operative Date Nov 02, 2017. Pre-Operative Diagnosis Left Knee Degenerative Joint Disease Post-Operative Diagnosis Left Knee Degenerative Joint Disease Procedure(s) Performed Left Total Knee Arthroplasty, Cemented Surgeon Dr. Coates Horse Exerciser Surgeon(s) Rupert Johnson PA-C Estimated Blood Loss 5 ml Findings Consistent with Post-Op Diagnosis Specimens A. Left Knee Bone and Tissue Anesthesia Type MAC Spinal Regional Complication(s) none Disposition Disposition: Recovery Room / PACU
--- NOTE | 2017-11-02 15:22 | [facility] Operative Report ---
Operative Report Operative Date Nov 02, 2017. Pre-Operative Diagnosis Left Knee Degenerative Joint Disease Post-Operative Diagnosis Left Knee Degenerative Joint Disease Procedure(s) Performed Left Total Knee Arthroplasty, Cemented utilizing [employer]hew journey 2 nonlocked total knee arthroplasty size 4 femur 3 tibia Poly-[address] Coates Candle Extrusion Machine Operator Surgeon(s) Rupert Johnson PA-C Estimated Blood Loss 5 ml Findings patient presents with severe end-stage DJD about the left knee nonrespwants Patient presents with severe end-stage DJD nonresponse to conservative therapy including physical therapy anti-inflammatories relative rest activity modification knee is consistent with varus alignment osteophyte formation subchondral sclerosis varus alignment on the bone changes Specimens A. Left Knee Bone and Tissue Anesthesia Type MAC Spinal Regional Complication(s) none Disposition Recovery Room / PACU Indications Patient presents after failing attempts at conservative management including physical therapy anti-inflammatories relative rest activity modification viscus supplementation injections for left total knee arthroplasty Description of Procedure After proper prepping and draping of the left lower extremity anterior midline incision was made over the region of the extensor extensor mechanism after meticulous hemostasis was obtained and maintained in subcutaneous tissues a medial parapatellar incision was made The patella was subluxed lateralward the medial lateral gutter were cleaned from any hypertrophic synovitis and scar tissue of the distal femoral block was placed and the distal femoral osteotomy cut was made subsequently the chamfers anterior and posterior osteotomy cuts were made utilizing the 4-in-1 block the tibia was subsequently subluxed anteriorward medial and ateral meniscal remnants were excised in their entirety remnants of the anterior and posterior cruciate ligaments were excised in their entirety excellent exposure of the proximal tibia was obtained the tibial osteotomy guide was placed on the proximal tibial osteotomy cut was made once again the knee was irrigated with copious amounts of sterile saline solution the patella was subsequently everted lateralward thickened scar tissue around the patella was removed the patella was subsequently cut utilizing a freehand technique and was drilled prepared for final preparation and placement of patella socially flexion-extension gaps were checked and the equal and symmetric trials were placed to the appropriate femoral and tibial trials with poly-spacer being placed for equal flexion and extension gaps and full range of motion including extension to 0 and flexion to 140 the trial components after having been taken to recovery range of motion was subsequently removed meticulous hemostasis was obtained and maintained subsequently a knee block injection of joint cocktail including ropivacaine 0.5% 150 mg. Bupivacaine 0.5 % epinephrine 1-200,030 mL's toradol 30 mg dexamethasone 4 mg ketamine 10 mg clonidine 100 micrograms normal saline solution 30 mg was infiltrated into the soft tissues of the posterior knee medial lateral gutters and periosteal synovium special attention was paid to protect neurovascular structures at all times subsequently trial components having been removed the knee was irrigated with sterile saline solution. debris was removed the proximal tibia was subsequently prepared and was made ready for the placement of the tibial component tibial component was also cemented and tamped into position the femoral component was subsequently placed and cemented in the position the patellar component was subsequently cemented in position because hemostasis once again obtained and maintained wound having been thoroughly irrigated with debridement and debridement lavage was performed as well as a medial parapatellar incision closed with #1 Vicryl in interrupted fashion subcutaneous was closed with #2 Vicryl skin was closed with skin clips. PA-C was necessary for prepping and drapping as well as wound closure of deep fascia Sub cutaneous tissue and skin and was necessary for the case. A sterile compressive dressing was placed patient was taken to recovery in stable condition of report dictated by Jaxon I attest to the content of the Intraoperative Record and any orders documented therein. Any exceptions are noted below. I attest to the content of the Intraoperative Record and any orders documented therein. Any exceptions are noted below.
[2017-11-02] MEDS ORDERED: MoRPHine SULFATE 4 MG/ML 1 ML CARP\\VIAL IV PRN (15:30)
[2017-11-02] MEDS ORDERED: MoRPHine SULFATE 10 MG/ML CARP/VIAL IV PRN (15:30)
--- NOTE | 2017-11-02 15:35 | Anesthesiology Progress Note ---
Anesthesia Post Op Note Date & Time Nov 02, 2017 at 15:35 Vital Signs Pain Intensity: 0 Vital Signs Past 12 Hours Date Time Temp Pulse Resp B/P (MAP) Pulse Ox O2 Delivery O2 Flow Rate FiO2 11/02/17 15:30 73 18 138/98 98 Nasal Cannula 2 11/02/17 15:20 70 16 144/92 97 Nasal Cannula 2 11/02/17 15:10 72 14 144/86 98 Nasal Cannula 2 11/02/17 15:00 69 15 140/78 98 Nasal Cannula 2 11/02/17 14:50 36.8 80 16 120/68 98 Oxymask 10 11/02/17 10:20 36.4 71 20 145/70 99 Room Air Notes Mental Status: alert / awake / arousable, participated in evaluation Pt Amnestic to Procedure: Yes Nausea / Vomiting: adequately controlled Pain: adequately controlled Airway Patency, RR, SpO2: stable & adequate BP & HR: stable & adequate Hydration State: stable & adequate Anesthetic Complications: no major complications apparent
[2017-11-02] MEDS: ACETAMINOPHEN 500 MG TAB PO SCH ×2 (17:06→23:51)
[2017-11-02] MEDS: D5W AND 1/2NSS + 20MEQ KCL 1,000 ML IV SCH ×2 (17:06→23:51)
[2017-11-02] MEDS: BuPROPion SR 150 MG TABCR PO SCH (20:42)
[2017-11-02] MEDS: CEFAZOLIN IV 2,000 MG in SYRINGE 5 ML IV SCH (20:42)
[2017-11-02] MEDS: QUETIAPINE FUMARATE 25 MG TAB PO SCH (20:42)
[2017-11-02] MEDS: DOCUSATE SODIUM 100 MG CAP PO SCH (20:42)
[2017-11-02] MEDS: ASPIRIN 81 MG ECTAB PO SCH (20:42)
[2017-11-02] MEDS: SENNA 8.6 MG TAB PO SCH (20:42)
[2017-11-03 03:52] VITALS: BP 115/75; PULSE 65; TEMP 36.5; O2SAT 97
[2017-11-03] MEDS: CEFAZOLIN IV 2,000 MG in SYRINGE 5 ML IV SCH (04:38)
[2017-11-03] MEDS: TRAMADOL HCL 50 MG TAB PO PRN ×3 (04:40→23:34)
[2017-11-03 06:11] LABS: HEMATOCRIT 32.5 % (37-47); HEMOGLOBIN 10.6 g/dL (12.0-16.0); MEAN CELL VOLUME 89.3 fL (80-100); MEAN CORPUSCULAR HEMOGLOBIN 29.1 pg (25-34); MEAN CORPUSCULAR HGB CONC 32.6 g/dl (32-36); MEAN PLATELET VOLUME 10.9 fL (7.4-10.4); PLATELET COUNT 215 K/uL (130-400); RED CELL DISTRIBUTION WIDTH CV 14.9 % (11.5-14.5); RED CELL DISTRIBUTION WIDTH SD 48.8 fL (36.4-46.3); WHITE BLOOD COUNT 12.49 K/uL (4.8-10.8)
[2017-11-03 06:43] LABS: CALCIUM 8.3 mg/dl (8.5-10.1); CREATININE 0.9 mg/dl (0.60-1.20); POTASSIUM 4.3 mmol/L (3.5-5.1)
[2017-11-03 06:45] LABS: INR 0.9 (0.9-1.1)
[2017-11-03 07:13] VITALS: BP 121/76; PULSE 69; TEMP 36.4; O2SAT 96
[2017-11-03] MEDS: ACETAMINOPHEN 500 MG TAB PO SCH ×3 (07:48→23:34)
--- NOTE | 2017-11-03 08:12 | Orthopedic Progress Note ---
Orthopedic Progress Note Date of Service Nov 03, 2017. Subjective Post OP Day: 1 Reports: feeling well, Denies: chest pain, SOB, nausea / vomiting, light headedness, calf pain Objective calves soft nontender, N/V intact, capillary refill less than 2 sec., dressing C /D/I (prevena), A&O x3, toes mobile, hemovac drainage (100/175cc per shift) Date Time Temp Pulse Resp B/P (MAP) Pulse Ox O2 Delivery O2 Flow Rate FiO2 11/03/17 07:13 36.4 69 16 121/76 (91) 96 Room Air 11/03/17 03:52 36.5 65 16 115/75 (88) 97 Room Air 11/03/17 00:00 Room Air 11/02/17 23:14 36.5 70 15 117/76 (90) 92 Room Air 11/02/17 18:55 37.3 94 18 123/79 (94) 93 Room Air 11/02/17 17:53 92 18 113/69 (84) 97 Nasal Cannula 2.0 11/02/17 16:55 75 18 132/85 (101) 97 Nasal Cannula 2.0 11/02/17 16:25 36.6 70 16 121/79 (93) 97 Nasal Cannula 2.0 11/02/17 15:55 98 Nasal Cannula 2.0 11/02/17 15:55 98 Nasal Cannula 2.0 11/02/17 15:55 36.5 71 16 127/74 (91) 98 Nasal Cannula 2.0 11/02/17 15:45 36.5 70 15 131/73 97 Nasal Cannula 2 11/02/17 15:30 73 18 138/98 98 Nasal Cannula 2 11/02/17 15:20 70 16 144/92 97 Nasal Cannula 2 11/02/17 15:10 72 14 144/86 98 Nasal Cannula 2 11/02/17 15:00 69 15 140/78 98 Nasal Cannula 2 11/02/17 14:50 36.8 80 16 120/68 98 Oxymask 10 11/02/17 10:20 36.4 71 20 145/70 99 Room Air Laboratory Results 24 Hours: Test 11/03/17 05:30 Hematocrit 32.5 % Hemoglobin 10.6 g/dL Prothromb Time International Ratio 0.9 Prothrombin Time 9.9 SECONDS Assessment & Plan Assessment: POD#1 sp left TKA Plan: PT/OT DVT proph- ASA 81mg bid Pain management- Judy, Tylenol DC planning- DC home tomorrow with [facility]. Dc dressing/drain in am.
--- NOTE | 2017-11-03 08:15 | Discharge Instructions ---
Discharge Instructions Date of Service Nov 03, 2017. Admission Reason for Admission: Left Knee Osteoarthritis Discharge Discharge Diagnosis / Problem: sp left TKA Discharge Goals Goal(s): Decrease discomfort, Improve function, Increase independence Activity Recommendations Activity Limitations: per Instructions/Follow-up section . Instructions / Follow-Up Instructions / Follow-Up ACTIVITY RECOMMENDATIONS: SELF CARE INSTRUCTIONS AFTER TOTAL KNEE REPLACEMENT A. You may need to continue a physical therapy program after discharge from the hospital. There are several options available to you. Your doctor will assist you in selecting the best one for you. 1. An out-patient facility 2 to 3 times a week for therapy or home therapy. 2. Continue working on all exercises taught to you in the hospital. Your goals should be to increase bending of your knee to 90 degrees and beyond and to fully straighten your knee. B. You may progress at your own pace from walking with a walker or crutches to a cane; then to no assistive devices. C. Make walking a part of your daily routine. Be up as much as comfortable with rest periods throughout the day. Rest with leg elevation is very important. Use the ice wrap frequently for the first 3-4 weeks. D. There are no restrictions on activities. You may ride in a car, shop, participate in grouter helper and all social activities. E. Wear the long elastic stockings (ALEJANDRA hose) 20 hours a day for 2 weeks after surgery. They can be removed several times a day for laundering and for a bath. F. You may shower, no tub baths until cleared by your doctor. SPECIAL CARE INSTRUCTIONS: VERY IMPORTANT TO READ AND REVIEW A. There are a few signs you need to watch for after you are home. Call [facility] if you notice any of the followin. Increased severe knee pain. Some pain is expected especially when you exercise. 2. Increased swelling in your leg or knee; pain or swelling of the calf muscle in either lower leg. 3. Any fluid drainage from the incision. 4. Shortness of breath or chest pain. B. Please call [facility] at if you have any concerns or questions about your operation or recovery. The doctor or his nurse will return your call promptly. C. You must take antibiotics before dental work, bladder, bowel or other surgery. Your doctor will provide you with a permanent care to carry describing this precaution. IMPORTANT: * REMEMBER TO TAKE ASPIRIN, 81 MG, TWICE DAILY FOR 4 WEEKS UNLESS OTHERWISE DIRECTED. THIS IS YOUR BLOOD THINNER. * HIGH RISK PATIENTS MAY BE PRESCRIBED A STRONGER BLOOD THINNER. THIS WILL BE PROVIDED AT DISCHARGE. * CALL IF INCREASED PAIN, REDNESS, DRAINAGE OR FEVER GREATER THAT 101. * WEAR ALEJANDRA HOSE 20 HOURS PER DAY FOR 2 WEEKS. Prevena- This is a large suction dressing covering your incision. This will help pull any excess drainage from the wound and allow your incision to heal properly. You may shower with this if you can keep the unit outside of the shower. If any bleeding or leakage is noted please call your doctor's office. This will remain on your incision for 7 days and then should be removed. This can be done yourself or by the home nursing staff if applicable. The entire unit is disposable once removed. Once removed, keep incision clean and dry. If redness or drainage is noted, please call your surgeon. FOLLOW UP VISIT: If appointment is not already scheduled: Please call [facility] to make a follow-up appointment for 2 weeks after your surgery at . Current Hospital Diet Patient's current hospital diet: Regular Diet Discharge Diet Recommended Diet: Regular Diet Procedures Procedures Performed: Left Total Knee Arthroplasty, Cemented utilizing [employer] Nephew journey 2 nonlocked total knee arthroplasty size 4 femur 3 tibia Poly-29 oval patella Pending Studies Studies pending at discharge: no Laboratory Results Hemoglobin A1c Test 10/18/17 13:09 Range/Units Estimated Average Glucose 105 mg/dl Hemoglobin A1c 5.3 4.5-5.6 % Medical Emergencies . Who to Call and When: Medical Emergencies: If at any time you feel your situation is an emergency, please call 911 immediately. . Non-Emergent Contact Non-Emergency issues call your: Surgeon . "Provider Documentation" section prepared by Roseanne Jarvis. . VTE Core Measure Inpt VTE Proph given/why not?: Other Anticoagulation, T.E.D. Stockings, SCD's [place] Drug Monitoring Program Search Results: patient reviewed within database, no issues identified
[2017-11-03] MEDS: CITALOPRAM 40 MG TAB PO SCH (08:53)
[2017-11-03] MEDS: MULTIVITAMIN TAB PO SCH (08:53)
[2017-11-03] MEDS: BuPROPion SR 150 MG TABCR PO SCH ×2 (08:53→20:37)
[2017-11-03] MEDS: DOCUSATE SODIUM 100 MG CAP PO SCH ×2 (08:54→20:37)
[2017-11-03] MEDS: ASPIRIN 81 MG ECTAB PO SCH ×2 (08:54→20:37)
[2017-11-03] MEDS: PANTOprazole SOD 40 MG TAB PO SCH (08:54)
--- NOTE | 2017-11-03 09:31 | Clinical Documentation Query ---
CLINICAL DOCUMENTATION QUERY Dr. GAMA, In your clinical opinion is this patient being managed for: ( x) Morbid obesity with BMI 42.9 ( ) Not Agree ( ) Other explanation of clinical findings (Please Explain) ( ) Unable to determine (Please Define) ( ) Need to Discuss BMI: A significantly high (>40) or significantly low (<19) BMI will impact the severity of illness and risk of mortality of your patient. However, the physician must document a correlating diagnosis in the medical record. Please clarify and document your clinical opinion in the progress notes and discharge summary. Terms such as "probable", "suspected", "likely", "questionable", "possible", or "still to be ruled out" are acceptable. IF IN AGREEMENT, YOU MUST DOCUMENT ABOVE DIAGNOSTIC STATEMENT IN DAILY PROGRESS NOTES AND DISCHARGE SUMMARY. This document is not part of the patient's record. Thank You, Nidhi Dickinson RN [phone]
--- NOTE | 2017-11-03 09:33 | Clinical Documentation Query ---
CLINICAL DOCUMENTATION QUERY Dr. BRANHAM, In your clinical opinion is this patient being managed for: ( x) Morbid obesity with BMI 42.9 ( ) Not Agree ( ) Other explanation of clinical findings (Please Explain) ( ) Unable to determine (Please Define) ( ) Need to Discuss BMI: A significantly high (>40) or significantly low (<19) BMI will impact the severity of illness and risk of mortality of your patient. However, the physician must document a correlating diagnosis in the medical record. Please clarify and document your clinical opinion in the progress notes and discharge summary. Terms such as "probable", "suspected", "likely", "questionable", "possible", or "still to be ruled out" are acceptable. IF IN AGREEMENT, YOU MUST DOCUMENT ABOVE DIAGNOSTIC STATEMENT IN DAILY PROGRESS NOTES AND DISCHARGE SUMMARY. This document is not part of the patient's record. Thank You, Nidhi Dickinson RN [phone]
--- NOTE | 2017-11-03 09:44 | Anesthesiology Progress Note ---
Anesthesia Post Op Note Date & Time Nov 03, 2017 at 09:42 Vital Signs Vital Signs Past 12 Hours Date Time Temp Pulse Resp B/P (MAP) Pulse Ox O2 Delivery O2 Flow Rate FiO2 11/03/17 07:45 Room Air 11/03/17 07:13 36.4 69 16 121/76 (91) 96 Room Air 11/03/17 03:52 36.5 65 16 115/75 (88) 97 Room Air 11/03/17 00:00 Room Air 11/02/17 23:14 36.5 70 15 117/76 (90) 92 Room Air Notes Mental Status: alert / awake / arousable, participated in evaluation Pt Amnestic to Procedure: Yes Nausea / Vomiting: adequately controlled Pain: adequately controlled Airway Patency, RR, SpO2: stable & adequate BP & HR: stable & adequate Hydration State: stable & adequate Neuraxial Anesthesia: sensory block resolved Anesthetic Complications: no major complications apparent
[2017-11-03 11:23] VITALS: BP 152/78; PULSE 70; TEMP 36.6; O2SAT 99
[2017-11-03] MEDS: D5W AND 1/2NSS + 20MEQ KCL 1,000 ML IV SCH (12:17)
[2017-11-03 15:15] VITALS: BP 120/75; PULSE 70; TEMP 36.4; O2SAT 100
[2017-11-03 16:00] VITALS: O2SAT 100
[2017-11-03] MEDS: CeleBREX 200 MG CAP PO SCH (20:38)
[2017-11-03] MEDS: QUETIAPINE FUMARATE 25 MG TAB PO SCH (21:45)
[2017-11-03] MEDS: SENNA 8.6 MG TAB PO SCH (21:45)
[2017-11-03 23:20] VITALS: BP 151/84; PULSE 70; TEMP 36.8; O2SAT 99
[2017-11-04 06:00] VITALS: BP 121/73; PULSE 75; TEMP 36.6; O2SAT 96
--- NOTE | 2017-11-04 07:19 | Orthopedic Progress Note ---
Orthopedic Progress Note Date of Service Nov 04, 2017. Subjective Post OP Day: 2 Reports: feeling well, pain controlled w PO medications, Denies: complaints, chest pain, SOB, nausea / vomiting, light headedness, calf pain Objective calves soft nontender, N/V intact, capillary refill less than 2 sec., dressing C /D/I (silverlon intact), A&O x3, toes mobile Date Time Temp Pulse Resp B/P (MAP) Pulse Ox O2 Delivery O2 Flow Rate FiO2 11/04/17 06:00 36.6 75 16 121/73 (89) 96 Room Air 11/03/17 23:40 Room Air 11/03/17 23:20 36.8 70 15 151/84 (106) 99 Room Air 11/03/17 16:00 100 Room Air 11/03/17 15:15 36.4 70 18 120/75 (90) 100 Room Air 11/03/17 11:23 36.6 70 19 152/78 (102) 99 Room Air 11/03/17 07:45 Room Air Assessment & Plan Assessment: POD#2 sp left TKA Plan: PT/OT DVT proph- ASA 81mg bid Pain management- Judy, Tylenol DC planning- DC home after PT today with [facility]. Discharge Planning Discharge Planning: home with home health DVT Prophylaxis: TEDs, SCDs, ASA
[2017-11-04] MEDS ORDERED: CLB200 PO (07:25)
[2017-11-04] MEDS ORDERED: ACET-24 PO (07:25)
[2017-11-04] MEDS ORDERED: CLC100 PO (07:25)
[2017-11-04] MEDS ORDERED: ONDA8TAB6 PO (07:25)
[2017-11-04] MEDS ORDERED: TRAM-10 PO (07:25)
[2017-11-04] MEDS ORDERED: ASPEC81 PO (07:25)
--- NOTE | 2017-11-04 07:28 | Discharge Summary ---
Orthopedic Discharge Summary Admission Date/Reason Nov 02, 2017 at 14:59 Left Knee Osteoarthritis. Discharge Date/Disposition Nov 04, 2017 Home with services Diagnosis Principal Diagnosis: left knee osteoarthritis Procedure(s) Performed Left Total Knee Arthroplasty, Cemented utilizing [employer] journey 2 nonlocked total knee arthroplasty size 4 femur 3 tibia Poly-29 oval patella Consultations NONE Medication Reconciliation New Medications: Ondansetron Hcl (Zofran) 8 Mg Tab 8 MG PO Q8 PRN for Nausea, #20 TAB Acetaminophen (Sb Non-Aspirin Extra Stre) 500 Mg Tab 1000 MG PO Q8H, #63 TAB Aspirin (Aspirin EC Low Dose) 81 Mg Ectab 81 MG PO BID for 30 Days, #60 TAB Celecoxib (Celebrex) 200 Mg Cap 200 MG PO BID for 30 Days, #60 CAP Docusate Sodium (Docusate Sodium) 100 Mg Cap 100 MG PO BID for 10 Days, #20 CAP Continued Medications: Bupropion (Wellbutrin Sr) 150 Mg Ertab 150 MG PO BID, TAB Citalopram (Citalopram Hydrobromide) 40 Mg Tab 1 TAB PO QAM, TAB 3 Refills Clonazepam (Klonopin) 0.5 Mg Tab 0.5 MG PO TID PRN for Anxiety, TAB Quetiapine Fumarate (Seroquel) 50 Mg Tab 50 MG PO HS, TAB Tramadol (Ultram) 50 Mg Tab 50-100 MG PO Q6H PRN for RN, #90 TAB (This prescription has been renewed) Discontinued Medications: Acetaminophen (Tylenol) 500 Mg Tab 1000 MG PO PRN, TAB Diphenhydramine-Acetaminophen (Tylenol Pm) 1 Tab Tab 2 TAB PO HS, TAB Admission Physical Exam As per Admitting History & Physical. Hospital Course Patient was a same day admission after undergoing a successful left TKA. she tolerated the procedure well. Post-operatively, her activity was progressed and well tolerated. Please refer to daily progress notes and PT notes for complete details. After exam on 11/04/17, patient felt to be stable for discharge home with HHPT. Patient will f/u in the office in 2 weeks for further evaluation including x-rays and incision check, sooner if having any issues or concerns. Below are pertinent labs/studies during their hospital stay: Last Vital Signs Documentation Date Time Temp Pulse Resp B/P (MAP) Pulse Ox O2 Delivery O2 Flow Rate FiO2 11/04/17 06:00 36.6 75 16 121/73 (89) 96 Room Air 11/02/17 17:53 2.0 Last Resulted CBC 11/03/17 05:30 Last Resulted BMP 11/03/17 05:30 Discharge Instructions ACTIVITY RECOMMENDATIONS: SELF CARE INSTRUCTIONS AFTER TOTAL KNEE REPLACEMENT A. You may need to continue a physical therapy program after discharge from the hospital. There are several options available to you. Your doctor will assist you in selecting the best one for you. 1. An out-patient facility 2 to 3 times a week for therapy or home therapy. 2. Continue working on all exercises taught to you in the hospital. Your goals should be to increase bending of your knee to 90 degrees and beyond and to fully straighten your knee. B. You may progress at your own pace from walking with a walker or crutches to a cane; then to no assistive devices. C. Make walking a part of your daily routine. Be up as much as comfortable with rest periods throughout the day. Rest with leg elevation is very important. Use the ice wrap frequently for the first 3-4 weeks. D. There are no restrictions on activities. You may ride in a car, shop, participate in supervisor facepiece line and all social activities. E. Wear the long elastic stockings (ALEJANDRA hose) 20 hours a day for 2 weeks after surgery. They can be removed several times a day for laundering and for a bath. F. You may shower, no tub baths until cleared by your doctor. SPECIAL CARE INSTRUCTIONS: VERY IMPORTANT TO READ AND REVIEW A. There are a few signs you need to watch for after you are home. Call [facility] if you notice any of the followin. Increased severe knee pain. Some pain is expected especially when you exercise. 2. Increased swelling in your leg or knee; pain or swelling of the calf muscle in either lower leg. 3. Any fluid drainage from the incision. 4. Shortness of breath or chest pain. B. Please call [facility] at if you have any concerns or questions about your operation or recovery. The doctor or his nurse will return your call promptly. C. You must take antibiotics before dental work, bladder, bowel or other surgery. Your doctor will provide you with a permanent care to carry describing this precaution. IMPORTANT: * REMEMBER TO TAKE ASPIRIN, 81 MG, TWICE DAILY FOR 4 WEEKS UNLESS OTHERWISE DIRECTED. THIS IS YOUR BLOOD THINNER. * HIGH RISK PATIENTS MAY BE PRESCRIBED A STRONGER BLOOD THINNER. THIS WILL BE PROVIDED AT DISCHARGE. * CALL IF INCREASED PAIN, REDNESS, DRAINAGE OR FEVER GREATER THAT 101. * WEAR ALEJANDRA HOSE 20 HOURS PER DAY FOR 2 WEEKS. * Prevena- This is a large suction dressing covering your incision. This will help pull any excess drainage from the wound and allow your incision to heal properly. You may shower with this if you can keep the unit outside of the shower. If any bleeding or leakage is noted please call your doctor's office. This will remain on your incision for 7 days and then should be removed. This can be done yourself or by the home nursing staff if applicable. The entire unit is disposable once removed. Once removed, keep incision clean and dry. If redness or drainage is noted, please call your surgeon. FOLLOW UP VISIT: If appointment is not already scheduled: Please call [facility] to make a follow-up appointment for 2 weeks after your surgery at .
[2017-11-04] MEDS: PANTOprazole SOD 40 MG TAB PO SCH (07:56)
[2017-11-04] MEDS: CITALOPRAM 40 MG TAB PO SCH (07:57)
[2017-11-04] MEDS: MULTIVITAMIN TAB PO SCH (07:57)
[2017-11-04] MEDS: TRAMADOL HCL 50 MG TAB PO PRN ×2 (08:04→12:52)
[2017-11-04 08:05] VITALS: BP 121/78; TEMP 36.7; O2SAT 99
[2017-11-04] MEDS: BuPROPion SR 150 MG TABCR PO SCH (09:02)
[2017-11-04] MEDS: DOCUSATE SODIUM 100 MG CAP PO SCH (09:02)
[2017-11-04] MEDS: ASPIRIN 81 MG ECTAB PO SCH (09:02)
[2017-11-04] MEDS: ACETAMINOPHEN 500 MG TAB PO SCH (09:03)
[2017-11-04] MEDS: CeleBREX 200 MG CAP PO SCH (09:04)
[2017-11-04 09:56] VITALS: O2SAT 99
[2017-11-04 10:28] VITALS: BP 121/78; PULSE 75; TEMP 36.7; O2SAT 99
== END 2017-11-04 14:42 | disposition home health service (06) | DRG 470 ==
LOC: C.ACU 09:55 → C.3E 14:59 → ENRESERV 15:40
PROVIDERS: ADMIT Orthopaedic Surgery; ATTEND Orthopaedic Surgery
PROC: 0SRD0J9 Replacement of Left Knee Joint with Synthetic Substitute, Cemented, Open Approach (ICD-10-PCS; principal; 2017-11-02 12:45)
DX: M17.12 Unilateral primary osteoarthritis, left knee (principal); Z68.41 Body mass index [BMI] 40.0-44.9, adult; E66.01 Morbid (severe) obesity due to excess calories; G47.33 Obstructive sleep apnea (adult) (pediatric); F32.9 Major depressive disorder, single episode, unspecified; F41.9 Anxiety disorder, unspecified; Z96.651 Presence of right artificial knee joint; Z86.79 Personal history of other diseases of the circulatory system; Z79.1 Long term (current) use of non-steroidal anti-inflammatories (NSAID); Z79.899 Other long term (current) drug therapy